=== PATIENT | male | born 1985 | race Caucasian/White ===

== ENCOUNTER 2018-08-23 23:39 | Emergency (ER) | payer OTHER ==
--- NOTE | 2018-08-23 23:46 | EDPHY ---
H & P Source: Patient Exam Limitations: No limitations Time Seen by Provider: 08/23/18 23:45 HPI/ROS: HPI: This is a 32-year-old male who presents with Chief Complaint: Suicidal thoughts and attempt Location: psych Quality: Suicidal thoughts and attempts Duration: Unknown Signs and Symptoms: Timing: Acute on chronic Severity: Moderate to severe Context: Patient has a longstanding history of major depression presents on M1 hold by [facility] Police. 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 Patient works for the [employer]. [place]. Patient is to stressful and reluctant to produce much history. Patient believes that his parents called the police this evening. Patient denies any previous suicide attempts. Modifying Factors: None Comment: ROS: A comprehensive 10 system review of systems is otherwise negative aside from elements mentioned in the history of present illness. MEDICAL/SURGICAL/SOCIAL HISTORY: Medical history: Major depression. Surgical history: Denies Social history: Drinks alcohol. Denies tobacco or alcohol use. Family history noncontributory. CONSTITUTIONAL: Nontoxic-appearing adult white male, refuses to open his eyes and keeps his eye shut during the entire conversation, awake and alert, no obvious distress HEENT: Atraumatic and normocephalic, PERRL, EOMI. Nares patent; no rhinorrhea; no nasal mucosal edema. Tympanic membranes clear. Oropharynx clear, no exudate and moist pink mucosa. Airway patent. No lymphadenopathy. No meningismus. Cardiovascular: Normal S1/S2, regular rate, regular rhythm, without murmur rub or gallop. PULMONARY/CHEST: Symmetrical and nontender. Clear to auscultation bilaterally. Good air movement. No accessory muscle usage. ABDOMEN: Soft, nondistended, nontender, no rebound, no guarding, no peritoneal signs, no masses or organomegaly. No CVAT. EXTREMITIES: 2/2 pulses, strength 5/5, no deformities, no clubbing, no cyanosis or edema. NEUROLOGICAL: no focal neuro deficits. GCS 15. SKIN: Warm and dry, no erythema. no rash. Good capillary refill. PSYCH: Poor eye contact, no flight of ideas, organized thought process, poor insight and judgment, no auditory hallucinations, no visual hallucinations, + suicidal ideation with a plan, no homicidal ideation, no paranoia (Naya Stacy) Constitutional: Initial Vital Signs Temperature (C) 36.6 C 08/23/18 23:50 Heart Rate 80 08/23/18 23:50 Respiratory Rate 18 08/23/18 23:50 Blood Pressure 103/66 08/23/18 23:50 O2 Sat (%) 96 08/23/18 23:50 O2 Delivery Mode Room Air Allergies/Adverse Reactions: No Known Allergies Allergy (Unverified 08/23/18 23:53) Home Medications: Medication Instructions Recorded Bupropion HCl [Wellbutrin Xl] 450 mg PO 08/23/18 Effexor Xr 75MG (*) 08/23/18 Levocetirizine Dihydrochloride 5 mg PO 08/23/18 [Xyzal] Medical Decision Making ED Course/Re-evaluation: 2350: Agree with M1 hold as patient is severely depressed with failed suicide attempt. Labs and UDS ordered. Patient is currently calm and cooperative in no chemical intervention is required. 0100: End of Shift. Signed over to Dr. Ball pending medical clearance, mental health evaluation and final disposition. This patient was seen under the supervision of my secondary supervising physician. Discussed this patient with Dr. Ball. (Naya Stacy) PHYSICIAN DOCUMENTATION: The patient was evaluated and managed by the Physician Insole Stiffener. My co- signature indicates that I have reviewed this chart and I agree with the findings and plan of care as documented. I am the secondary supervising physician. 7:00 a.m.- The patient was seen by Larry from the mental health team. He was deemed not at risk for SI. His M1 hold was vacated. He no longer feels suicidal. He is not intoxicated. He is followed by a therapist and a psychiatrist and in fact has an appointment later today. He will be discharged from the emergency department. (Yoko Ball) Differential Diagnosis: Differential diagnosis includes but is not limited to major depression, anxiety disorder, schizophrenia, bipolar disorder, intoxicant use, suicidal ideation, psychosis, lavon. (Naya Stacy) - Data Points Laboratory Results: Laboratory Results 08/24/18 00:00 08/24/18 00:00 08/24/18 08/24/18 08/24/18 05:40 00:00 00:00 WBC 8.79 10^3/uL 10^3/uL (3.80-9.50) RBC 4.60 10^6/uL 10^6/uL (4.40-6.38) Hgb 14.0 g/dL g/dL (13.7-17.5) Hct 39.9 % L % (40.0-51.0) MCV 86.7 fL fL (81.5-99.8) MCH 30.4 pg pg (27.9-34.1) MCHC 35.1 g/dL g/dL (32.4-36.7) RDW 12.1 % % (11.5-15.2) Plt Count 222 10^3/uL 10^3/uL (150-400) MPV 9.8 fL fL (8.7-11.7) Neut % (Auto) 72.8 % % (39.3-74.2) Lymph % (Auto) 17.9 % % (15.0-45.0) [place] % (Auto) 5.9 % % (4.5-13.0) Eos % (Auto) 2.7 % % (0.6-7.6) Baso % (Auto) 0.5 % % (0.3-1.7) Nucleat RBC Rel Count 0.0 % % (0.0-0.2) Absolute Neuts (auto) 6.40 10^3/uL 10^3/uL (1.70-6.50) Absolute Lymphs (auto) 1.57 10^3/uL 10^3/uL (1.00-3.00) Absolute Monos (auto) 0.52 10^3/uL 10^3/uL (0.30-0.80) Absolute Eos (auto) 0.24 10^3/uL 10^3/uL (0.03-0.40) Absolute Basos (auto) 0.04 10^3/uL 10^3/uL (0.02-0.10) Absolute Nucleated RBC 0.00 10^3/uL 10^3/uL (0-0.01) Immature Gran % 0.2 % % (0.0-1.1) Immature Gran # 0.02 10^3/uL 10^3/uL (0.00-0.10) Sodium 141 mEq/L mEq/L (135-145) Potassium 4.1 mEq/L mEq/L (3.5-5.2) Chloride 109 mEq/L mEq/L (97-110) Carbon Dioxide 24 mEq/l mEq/l (22-31) Anion Gap 8 mEq/L mEq/L (6-14) BUN 19 mg/dL mg/dL (7-23) Creatinine 1.0 mg/dL mg/dL (0.7-1.3) Estimated GFR > 60 Glucose 122 mg/dL H mg/dL (70-100) Calcium 9.9 mg/dL mg/dL (8.5-10.4) Urine Opiates Screen NEGATIVE (NEGATIVE) Urine Barbiturates NEGATIVE (NEGATIVE) Valproic Acid < 10.0 mcg/mL L mcg/mL (50.0-150.0) Ur Phencyclidine Scrn NEGATIVE (NEGATIVE) Ur Amphetamine Screen NEGATIVE (NEGATIVE) U Benzodiazepines Scrn NEGATIVE (NEGATIVE) Urine Cocaine Screen NEGATIVE (NEGATIVE) U Marijuana (THC) Screen NEGATIVE (NEGATIVE) Ethyl Alcohol < 10 mg/dL mg/dL (0-10) Departure - Departure Disposition: Home, Routine, Self-Care Clinical Impression: Severe major depression without psychotic features Condition: Good Instructions: Depression (ED) Referrals: [facility] [Clinic] - As per Instructions
[2018-08-24 00:07] LABS: PLATELET COUNT 222 10^3/uL (150-400)
[2018-08-24 07:02] VITALS: BP 99/56
--- NOTE | 2018-08-24 07:31 | ASMTTLCEVL ---
TLC Evaluation - Basic Information Marital status/children Notes: Pt is single, never , no dependents and is not involved in a relationship. Living situation Notes: Pt has lived in [place] for 3-4 years. He lives alone in his apartment in [place]. Sexual history/orientation Notes: Pt described that he is bisexual. Not active. Peer support/family strengths Notes: Pt stated having no local supports other than his therapist. Education level/history Notes: Pt reported having obtained a bachelors degree in communication [employer] in 2005 from [employer]. 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 Notes: None. Legal Notes: Pt denied any arrest/legal history. Jewish/Spiritual Notes: Pt identified himself as being Oriental Orthodox. Leisure Notes: Pt reported not much. Patient's strengths Answers: Intelligent (Please select at least TWO strengths): Willingness Evaluation Start Date and 08/24/2018 06:15 AM Time Hospital Status Answers: M1 Hold 72-hr M1 Hold Start Date 08/23/2018 11:10 PM and Time Patient statement Notes: Donna been feeling very unhappy about life. I called my parents last night and told them I had gone into a [place] to try to get hypothermia to try to kill myself. They called the police and the brought me here. I feel I can ensure my own safety if allowed to be released from the hospital and want to follow up with my regular weekly therapist appointment with Abhi Cabezas today at 5:30 pm. Narrative Notes: Pt is a 32 yo, single, employed, male with reported history of feeling sad and lonely since age 11 when his family moved from [place] to [place] and being treated for depression for the past 2 years under the care of an outpatient psychiatrist in [place] named Abhi Valiente MD and sees therapist named Abhi Cabezas in [place] on a weekly basis on Mondays for the past 2 years. His next appointment with his therapist is today at 5:30 pm. Pt requested to not have parents called. Diagnosis History Notes: Pt reported history of feeling sad and lonely since age 11 when his family moved from [place] to [place] and being treated for depression for the past 2 years. Prior suicide attempts Notes: Pt denied any actual suicide attempt history. He reported having suicidal ideation around age 18 and was hospitalized for a week somewhere in [place]. Prior hospitalizations Notes: He reported having suicidal ideation around age 18 and was hospitalized for a week somewhere in [place]. Treatment Responses Notes: Pt reported being medication compliant. History of violence Notes: Pt denied any past history of violence/aggression and denied any homicidal ideation. Therapist: Pt reported that he sees a therapist named Abhi Cabezas in [place] on a weekly basis on Mondays for the past 2 years. His next appointment with his therapist is today at 5:30 pm. Psychiatrist: Pt reported being treated for depression for the past 2 years under the care of an outpatient psychiatrist in [place] named Abhi Valiente MD. Medications (name, dosage, route, freq uency) Notes: Xyzal 5 mg po daily; Effexor XR 300 mg po daily; Wellbutrin 450 mg po daily. Pt reported being medication compliant. Allergies/Reaction Notes: NKDA. Sleep Notes: Pt reported he sleeps through the night and has been feeling hypersomnolent lately. Appetite Notes: WNL. Medical/Surgical history Notes: Noncontributory. Substance use history (frequency, intensity, his tory, duration) Notes: Pt reported he first tried alcohol around the age of 16-17. He reported that when he was drinking, he would typically drink 2 beers several times a week. He reported his last use of alcohol was about 6 weeks ago. He stated he stopped drinking at that time due to the diet he is currently on. Pt reported having first tried marijuana at age 20. He added that he does not like marijuana and his last use was reported as a few months ago. He reported having used a pill form of mushrooms last night for the first and only time. He added that it likely lowered his inhibitions. He otherwise denied any other history of use of other illicit substances. BAL was zero. UDS results negative for all tested substances. Family composition Notes: Parents remain and reside in [place], [place]. He has a brother named Dirk age 27 that lives in [place] also. He has a sister named Anna age 32 that lives in [facility]. Need for family Answers: No participation in patient's care Family psychiatric/substance abuse history Notes: Pt denied knowledge of any family history of mental illness or substance abuse. Developmental history Notes: Pt reported that he was born and raised in [place] until the age of 11 when his family moved to [place], [place]. Pt reported I did not adjust well socially to the move and had difficulty making friends. Pt denied having any learning challenges in school and endorsed having achieved normal childhood developmental milestones. He reported having sustain a concussion with LOC in the 8th grade when he fell off of a railing and hit his head. He denied any childhood history of physical, emotional or sexual abuse/trauma. Abuse concerns Answers: None TLC Evaluation - Mental Status Exam Appearance: Answers: Appropriate Clean Neat Eye Contact: Answers: Intermittent Mood: Answers: Depressed Sad Affect: Answers: Calm Flat Sad Subdued Tearful Behavior: Answers: Cooperative Fatigued Passive Withdrawn Speech: Answers: Relevant Logical Clear Coherent Slowed Soft Thought Process: Answers: Organized Oriented Alert Goal Oriented Intact Insight: Answers: Fair Judgement: Answers: Fair Hallucinations: Answers: None Current Stage of Change Answers: Maintenance Pt reported to have Answers: Yes suicidal/self-injuring ideation/behavior? Pt reported to be making Answers: No suicidal/self-injuring threats? Pt reported to have Answers: No aggression/assault ideation/behavior? Pt exhibits inability to Answers: No care for self/grave disability? Ideation/behavior is Answers: No chronic? Patient has a specific Answers: No plan? Pt has access to means to Answers: No execute the plan? Ideation involves Answers: No serious/lethal intent? Ideation has Answers: No delusional/hallucinatory content? History of Answers: No suicidal/self-injuring ideation, behavior, or threats? History of Answers: No aggressive/assaultive ideation, behavior, or threats? History of serious Answers: No physical harm to self/others while in treatment setting? [facility] Evaluation - Suicide/Homicide Risk Suicide Risk Factors: Answers: Anhedonia Cluster "B" D/O or Traits Flat Affect Inadequate Social Support Major Depression Single Homicide/violence risk Answers: None factors: Current Suicidal Answers: Yes Ideation? Current Suicidal Ideation Answers: No in the Past 48 Hours? Current Suicidal Ideation Answers: No in the Past Month? Current Suicidal Answers: No Ideation, Worst Ever? Suicide Internal Answers: Absence of Psychosis Protective Factors: Frustration Tolerance Jewish Beliefs Suicide External Answers: Positive Therapeutic Protective Factors: Relationships Ranking of patient's Answers: Low suicidal risk: Ranking of patient's Answers: Low homicidal risk: TLC Evaluation - Wrap-up BDI Total Score: 30 BDI Question #2 Score: 3 BDI Question #9 Score: 2 BSS Total Score: 34 AXIS I Diagnosis (include DSM-V and ICD-10 codes), must also be entered in [employer], which is the source of truth. Notes: Major Depressive Disorder, recurrent, moderate 296.32 (F33.1) In consultation with [facility] ED physician, Yoko Ball MD, Dr. Ball concurred that pt does not appear to meet 27-65 criteria requiring psychiatric hospitalization as pt does not appear to be an imminent risk of harm to self/others/gravely disabled due to a mental illness condition. Dr. Ball provided verbal order read back vacating M1 hold at 0655 hrs. Evaluation End Date and 08/24/2018 07:30 AM Time (HH:MM): Date Signed: 08/24/2018 07:30 AM Electronically Signed By:Larry Fuller
--- NOTE | 2018-08-24 07:32 | ASMTTCLDSP ---
TLC Discharge Disposition Disposition: Answers: Discharge If Answers: Yes DISCHARGED: Patient/family given suicide hotline info & [facility] brochure? Disposition Notes: Notes: Pt stated commitment or ability to keep self safe, denied thoughts of self harm or harm to others. Pt expressed a desire to f/u with his regularly scheduled weekly therapist appointment with Abhi Cabezas today at 5:30 pm. Pt was given local hotline information and SAMH[facility] brochure After an Attempt and encouraged to follow up with his therapist appointment today at 5:30 p.m. Discharge Concerns/Recommendations: Notes: In consultation with [facility] ED physician, Yoko Ball MD, Dr. Ball concurred that pt does not appear to meet 27-65 criteria requiring psychiatric hospitalization as pt does not appear to be an imminent risk of harm to self/others/gravely disabled due to a mental illness condition. Dr. Ball provided verbal order read back vacating M1 hold at 0655 hrs. Was patient given the Answers: Not applicable Inpatient Behavioral Health Prohibited Belongings List while in the ED? Psychiatrist vacating M1 Yoko Ball MD Hold: Date and time M1 hold 08/24/2018 06:55 AM vacated (time format is hh:mm): Type of Hold: Answers: M1/72-hour Hold Hold initiated by: Answers: Police Date Signed: 08/24/2018 07:31 AM Electronically Signed By:Larry Fuller
== END 2018-08-24 07:18 | disposition home or self-care (01) ==
LOC: EEVIPCON 23:39
DX: R45.851 Suicidal ideations (principal); F32.3 Major depressive disorder, single episode, severe with psychotic features
CPT/HCPCS: 80305; G0480